=== PATIENT | female | born 1995 | race Caucasian/White ===

== ENCOUNTER 2022-05-20 21:52 | Emergency (ER) | payer MEDICAID ==
[~2022-05-20] VITALS: Ht 152.4 cm; Wt 59.0 kg
[2022-05-20 22:02] VITALS: BP 136/75
--- NOTE | 2022-05-20 22:05 | NUR ---
TO LOBBY A/W BED AMBULATORY
--- NOTE | 2022-05-21 | NUR ---
RECEIVED IN BED 2 WITH C/O LEFT HIP PAIN. DENIES TRAUMA. NO OBVIOUS DEFORMITIES. PT STATED SHE HAD FELT POP LAST NIGHT
--- NOTE | 2022-05-21 00:06 | NUR ---
dr fernandez at bedside for exam
[2022-05-21] MEDS ORDERED: NAPR-1847 PO (00:20)
[2022-05-21] MEDS ORDERED: TRAM50TA3 PO (00:20)
--- NOTE | 2022-05-21 00:28 | NUR ---
Patient discharged with v/s stable. Written and verbal after care instructions given and explained. Patient alert, oriented and verbalized understanding of instructions. Ambulatory with steady gait. All questions addressed prior to discharge. ID band removed. Patient advised to follow up with PMD. Rx of NAPROXEN, TRAMADOL given. Patient educated on indication of medication including possible reaction and side effects. Opportunity to ask questions provided and answered.
[2022-05-21 00:29] VITALS: BP 128/68
== END 2022-05-21 00:29 | disposition home or self-care (01) ==
LOC: MED 21:52
DX: M70.72 Other bursitis of hip, left hip (principal); G89.29 Other chronic pain; F12.90 Cannabis use, unspecified, uncomplicated; Z79.899 Other long term (current) drug therapy; Y93.89 Activity, other specified
CPT/HCPCS: 73502; 99283

== ENCOUNTER 2022-05-25 01:11 | Emergency (ER) | payer MEDICAID ==
[~2022-05-25] VITALS: Ht 152.4 cm; Wt 59.0 kg
[~2022-05-25 01:11] MED LIST: NAPR-1847 PO; TRAM50TA3 PO
[2022-05-25 01:18] VITALS: BP 106/64
--- NOTE | 2022-05-25 01:21 | NUR ---
TO LOBBY A/W BED AMBULATORY
--- NOTE | 2022-05-25 01:36 | NUR ---
27 yo f bib self with c/c of 10/10 sore throat x2days. reports runny nose. denies cough and congestion. throat has some redness. pt states she has been using [facility] cough drops with no relief. denies hx, rx and allergies
[2022-05-25] MEDS ORDERED: KETOROLAC 30 MG/ML VIAL IM ONE (01:50)
--- NOTE | 2022-05-25 02:16 | NUR ---
Strep swabs sent to lab.
--- NOTE | 2022-05-25 03:03 | NUR ---
Patient discharged with v/s stable. Written and verbal after care instructions given and explained. Patient verbalized understanding. Ambulatory with steady gait. All questions addressed prior to discharge. Advised to follow up with PMD.
[2022-05-25 03:04] VITALS: BP 115/76
== END 2022-05-25 03:04 | disposition home or self-care (01) ==
LOC: MED 01:11
DX: J06.9 Acute upper respiratory infection, unspecified (principal); Z79.899 Other long term (current) drug therapy
CPT/HCPCS: 87081; 96372; 99283; J1885

== ENCOUNTER 2022-05-31 01:03 | Emergency (ER) | payer MEDICAID ==
[~2022-05-31] VITALS: Ht 172.7 cm; Wt 59.0 kg
[2022-05-31 01:05] VITALS: BP 106/60
[2022-05-31] MEDS ORDERED: IBUPROFEN 600 MG TAB PO ONE (02:10)
[2022-05-31] MEDS ORDERED: ACETAMINOPHEN EXTRA STRENGTH 500 MG TAB PO ONE (02:10)
[2022-05-31] MEDS ORDERED: IBUP-2213 PO (04:29)
[2022-05-31 05:22] VITALS: BP 106/60
== END 2022-05-31 04:37 | disposition home or self-care (01) ==
LOC: MED 01:03
DX: M79.674 Pain in right toe(s) (principal)
CPT/HCPCS: 73660; 99283